=== PATIENT | male | born 1960 | race Caucasian/White ===

== ENCOUNTER 2020-12-12 05:21 | Day surgery (SDC) | payer BC ==
[2020-12-09 14:33] LABS: BASOPHILS # (AUTO) 0.1 X10'3 (0-0.2); BASOPHILS % (AUTO) 0.7 % (0-1); EOSINOPHILS # (AUTO) 0.4 X10'3 (0-0.9); EOSINOPHILS % (AUTO) 3.1 % (0-6); LYMPHOCYTES # (AUTO) 3.2 X10'3 (1.1-4.8); LYMPHOCYTES % (AUTO) 26.9 % (21-51); MEAN CORPUSCULAR HEMOGLOBIN 31.5 PG (27.0-31.0); MEAN CORPUSCULAR HGB CONC 34.9 g/dL (33.0-36.5); MEAN CORPUSCULAR VOLUME 90.5 FL (78-98); MEAN PLATELET VOLUME 8.4 FL (7.4-10.4); MONOCYTES # (AUTO) 0.8 X10'3 (0-0.9); MONOCYTES % (AUTO) 6.5 % (2-12); NEUTROPHILS # (AUTO) 7.6 X10'3 (1.8-7.7); NEUTROPHILS % (AUTO) 62.8 % (42-75); PRE OP HEMATOCRIT 47.2 % (42.0-52.0); PRE OP HEMOGLOBIN 16.5 g/dL (14.0-17.9); PRE OP PLATELET COUNT 206 X10'3 (140-440); RED BLOOD COUNT 5.22 X10'6 (4.70-6.10); RED CELL DISTRIBUTION WIDTH 13.7 % (11.5-14.5)
[2020-12-09 14:36] LABS: ALBUMIN 3.9 G/DL (3.4-5.0); ALBUMIN/GLOBULIN RATIO 1.2 (1.1-1.5); ALKALINE PHOSPHATASE 75 IU/L (46-116); BLOOD UREA NITROGEN 15 MG/DL (7-18); BUN/CREATININE RATIO 10.4 (5.4-32.0); CALCIUM 8.4 MG/DL (8.5-10.1); CHLORIDE 108 MMOL/L (99-107); CREATININE 1.44 MG/DL (0.60-1.10); PRE OP ALT 40 U/L (30-65); PRE OP ANION GAP 7 (8-16); PRE OP AST 20 U/L (10-37); PRE OP BILIRUB, TOTAL 0.6 MG/DL (0.0-1.0); PRE OP GLUCOSE 125 MG/DL (70-104); PRE OP POTASSIUM 4.1 MMOL/L (3.4-5.1); PRE OP SODIUM 141 MMOL/L (135-145); TOTAL CARBON DIOXIDE 26.4 MMOL/L (24-32); TOTAL PROTEIN 7.1 G/DL (6.4-8.2); eGFR 50 ML/MIN
[2020-12-12] VITALS (7 sets, daily range): BP systolic 106–151; BP diastolic 63–87
[~2020-12-12] VITALS: Ht 180.3 cm; Wt 120.9 kg
[~2020-12-12 05:21] MED LIST: CHOL400T57 PO; KRIL1CAP21 PO; MULT-1085 PO; TURM500C4 PO; [UNRECOGNIZED DRUG - OTHER] PO; ringers solution, lacted 1,000 ML IV SCH
[2020-12-12] MEDS ORDERED: cefazolin/dext.iso 2gm/100ml IV ONE (05:30)
[2020-12-12] MEDS ORDERED: famotidine 20mg tablet PO ONE (05:30)
[2020-12-12] MEDS ORDERED: LIDOcaine 1% 30ml preserv. free vial ONE (06:42)
[2020-12-12] MEDS ORDERED: BUPIVAcaine 0.5% inj/PF 30 ML ONE (06:42)
[2020-12-12] MEDS ORDERED: fentaNYL /PF 50mcg/ml 5ml ampule ONE (07:21)
[2020-12-12] MEDS ORDERED: midazolam 1 mg/ML 2ml injection ONE (07:21)
[2020-12-12] MEDS ORDERED: proCHLORperazine 10 MG/2 ml inj IV PRN (07:25)
[2020-12-12] MEDS ORDERED: hydrALAZINE 20mg/ml inj. IV PRN (07:25)
[2020-12-12] MEDS ORDERED: morphine 2 MG/ML inj. syringe IV PRN (07:25)
[2020-12-12] MEDS ORDERED: morphine 4 MG/ML inj SYRINge IV PRN (07:25)
[2020-12-12] MEDS ORDERED: meperidine/PF 25mg/ml syringe IV PRN ×3 (07:25)
[2020-12-12] MEDS ORDERED: ketorolac trometh. 30mg/ml inj. IV ONE (07:25)
[2020-12-12] MEDS ORDERED: ringers solution, lacted 1,000 ML IV SCH (07:25)
[2020-12-12] MEDS ORDERED: labetalol 20mg/4ml (5mg/ml) syringe IV PRN (07:25)
[2020-12-12] MEDS ORDERED: ondansetron/PF 4mg/2ml inj IV PRN (07:25)
[2020-12-12] MEDS ORDERED: acetaminophen 1,000mg/100ml IV 100 ML IV PRN (07:25)
[2020-12-12] MEDS ORDERED: rocuronium 10mg/ml inj IV ONE ×2 (07:55→09:00)
[2020-12-12] MEDS ORDERED: ondansetron/PF 4mg/2ml inj ONE (07:55)
[2020-12-12] MEDS ORDERED: dexamethasone sod phosphate 4mg/ml inj. ONE (07:55)
[2020-12-12] MEDS ORDERED: LIDOcaine 2% (20mg/ml) 5ml vial ONE (07:55)
[2020-12-12] MEDS ORDERED: propofol inj 20 ML IV ONE (07:55)
[2020-12-12] MEDS ORDERED: sugammadex 200mg/2ml injection IV ONE (08:56)
--- NOTE | 2020-12-12 09:26 | NUR ---
ASSUME CARE PT AWAKE VSS NO DISTRESS DENIES PAIN. LAP SITES TO ABD COVERED INTACT. IV TO RIGHT HAND PATIENT IVF INFUSING WITHOUT DIFFICULTY. CONT TO MONITOR. Addendum: 12/12/20 at 0948 by Merari Redmond RN Amended: Links added.
[2020-12-12] MEDS ORDERED: HYDROcodone/acetaminophen 5mg/325mg tablet PO PRN ×2 (09:30)
--- NOTE | 2020-12-12 10:21 | NUR ---
PT SITTING UP IN BED AWAKE ALERT DENIES PAIN VSS GEO PO'S INSTR ON NEED TO VOID PRIOR TO DC HOME. DC INSTR GIVEN NO ?'S OR CONCERNS. Addendum: 12/12/20 at 1022 by Merari Redmond RN Amended: Links added.
== END 2020-12-12 10:26 | disposition home or self-care (01) ==
LOC: PAS 05:21
PROVIDERS: ATTEND Surgery
DX: K42.9 Umbilical hernia without obstruction or gangrene (principal); K40.90 Unilateral inguinal hernia, without obstruction or gangrene, not specified as recurrent; G47.33 Obstructive sleep apnea (adult) (pediatric); E66.9 Obesity, unspecified; Z68.35 Body mass index [BMI] 35.0-35.9, adult; Z72.89 Other problems related to lifestyle; Z20.822 Contact with and (suspected) exposure to COVID-19; Z98.890 Other specified postprocedural states; Z79.899 Other long term (current) drug therapy; Z83.3 Family history of diabetes mellitus; Z82.61 Family history of arthritis
CPT/HCPCS: 36415; 49585; 49650; 80053; 82948; 85025; 93005; C1781; C9399; J1100; J2001; J2250; J2405; J2704; J3010; S2900; U0003; U0005; Z7506; Z7508; Z7512; A4215; A4618; J7120